=== PATIENT | female | born 1990 | race African-American/Black ===

== ENCOUNTER 2016-08-20 08:52 | Emergency (ER) | payer MEDICAID ==
[~2016-08-20] VITALS: Ht 170.2 cm; Wt 60.0 kg
[~2016-08-20 08:52] MED LIST: FERR-43 PO
[2016-08-20 09:16] VITALS: BP 147/102
== END 2016-08-20 14:10 | disposition left against medical advice (07) ==
LOC: ER 13:37
DX: Z53.21 Procedure and treatment not carried out due to patient leaving prior to being seen by health care provider (principal)

== ENCOUNTER 2016-09-09 02:16 | Emergency (ER) | payer MEDICAID ==
[~2016-09-09] VITALS: Ht 160 cm; Wt 60.0 kg
[2016-09-09] MEDS ORDERED: KETOROLAC 30MG/ML VIAL IM ONE (07:00)
[2016-09-09] MEDS ORDERED: ONDANSETRON 4MG ODT PO ONE (07:00)
[2016-09-09 07:30] VITALS: BP 140/107
[2016-09-09 07:59] LABS: BASOPHILS % 0.4 % (0.0-2.0); HEMATOCRIT. 42.4 % (36.0-48.0); HEMOGLOBIN. 14.2 g/dL (12.0-16.0); LYMPHOCYTES % 29.1 % (20.0-50.0); MEAN CORPUSCULAR HEMOGLOBIN 27.9 pg (28.0-32.0); MEAN CORPUSCULAR VOLUME 83.5 fL (81.0-99.0); MEAN PLATELET VOLUME 8.6 fl (7.4-10.4); MONOCYTES % 6.6 % (2.0-8.0); NEUTROPHILS % 63.9 % (40.0-76.0); PLATELET 225 x1000/uL (130-400); RED BLOOD CELL COUNT 5.07 mill/uL (4.2-5.4); RED CELL DISTRIBUTION WIDTH 13.2 % (11.6-14.6)
[2016-09-09 08:04] LABS: CARBON DIOXIDE 24 mEq/L (21-32); CHLORIDE 108 mEq/L (98-107); ETHANOL BLOOD < 10 mg/dL
[2016-09-09 08:06] LABS: CLARITY URINE CLOUDY (CLEAR); COLOR URINE YELLOW (YELLOW); GLUCOSE URINE NEGATIVE (NEGATIVE); KETONES URINE NEGATIVE (NEGATIVE); LEUKOCYTE ESTERASE URINE NEGATIVE (NEGATIVE); NITRITE URINE NEGATIVE (NEGATIVE); OCCULT BLOOD URINE 2+ (NEGATIVE); PROTEIN URINE NEGATIVE (NEGATIVE)
[2016-09-09 08:28] LABS: *AMPHETAMINES SCREEN URINE NEGATIVE (NEGATIVE); *BARBITURATES SCREEN URINE NEGATIVE (NEGATIVE); *BENZODIAZEPINES SCREEN URINE NEGATIVE (NEGATIVE); *COCAINE SCREEN URINE NEGATIVE (NEGATIVE); METHADONE URINE SCREEN NEGATIVE (NEGATIVE); OPIATES URINE SCREEN NEGATIVE (NEGATIVE); PHENCYCLIDINE URINE SCREEN NEGATIVE (NEGATIVE)
[2016-09-09 08:35] LABS: CANNABINOID URINE SCREEN PRESUMTIVE POSITIVE (NEGATIVE)
[2016-09-09 08:44] LABS: HCG SCREEN NEGATIVE
== END 2016-09-09 12:15 | disposition home or self-care (01) ==
LOC: ER 02:20
DX: R51 Headache (principal); F12.10 Cannabis abuse, uncomplicated; Z59.0 Homelessness
CPT/HCPCS: 36415; 80048; 80305; 81001; 84703; 85025; 96372; 99284; G0482; J1885; Q0162

== ENCOUNTER 2017-03-23 09:06 | Emergency (ER) | payer MEDICAID ==
[~2017-03-23] VITALS: Ht 165.1 cm; Wt 66.0 kg
[2017-03-23 10:40] VITALS: BP 92/63
[2017-03-23 11:12] LABS: BASOPHILS % 0.1 % (0.0-2.0); HEMATOCRIT. 44.5 % (36.0-48.0); HEMOGLOBIN. 14.6 g/dL (12.0-16.0); LYMPHOCYTES % 31.5 % (20.0-50.0); MEAN CORPUSCULAR HEMOGLOBIN 27.9 pg (28.0-32.0); MEAN CORPUSCULAR VOLUME 85.4 fL (81.0-99.0); MEAN PLATELET VOLUME 8.9 fl (7.4-10.4); MONOCYTES % 8.5 % (2.0-8.0); NEUTROPHILS % 59.9 % (40.0-76.0); PLATELET 225 x1000/uL (130-400); RED BLOOD CELL COUNT 5.21 mill/uL (4.2-5.4)
[2017-03-23 11:24] LABS: B-HCG QUANTITATIVE < 1 mIU/mL (<3); CARBON DIOXIDE 30 mEq/L (21-32); CHLORIDE 106 mEq/L (98-107)
[2017-03-23 11:25] LABS: CLARITY URINE CLOUDY (CLEAR); COLOR URINE YELLOW (YELLOW); KETONES URINE NEGATIVE (NEGATIVE); LEUKOCYTE ESTERASE URINE NEGATIVE (NEGATIVE); NITRITE URINE NEGATIVE (NEGATIVE); OCCULT BLOOD URINE 3+ (NEGATIVE); PH URINE 6.5 (4.5-8.0); PROTEIN URINE TRACE (NEGATIVE); SPECIFIC GRAVITY URINE 1.025 (1.005-1.030); UROBILINOGEN URINE 0.2 E.U./dL (0.2-1.0)
== END 2017-03-23 11:44 | disposition home or self-care (01) ==
LOC: ER 09:12
DX: N93.8 Other specified abnormal uterine and vaginal bleeding (principal); R05 Cough; F17.200 Nicotine dependence, unspecified, uncomplicated
CPT/HCPCS: 36415; 80053; 81001; 81025; 84702; 85025; 86850; 86900; 99284

== ENCOUNTER 2017-11-01 11:51 | Emergency (ER) | payer MEDICAID ==
[~2017-11-01] VITALS: Ht 162.6 cm; Wt 73.0 kg
[2017-11-01 14:00] VITALS: BP 110/64
[2017-11-01] MEDS ORDERED: LIDOCAINE HCL 1% 20ML VIAL (Pyxis) INJ MC ONE (14:15)
[2017-11-01] MEDS ORDERED: VISCOUS LIDOCAINE 2% 15 ML UDC MM STA (14:28)
[2017-11-01] MEDS ORDERED: LIDOCAINE HCL/PF 1% 10 MG/ML 5ML VIAL IJ NR (14:30)
== END 2017-11-01 15:29 | disposition home or self-care (01) ==
LOC: ER 11:51
DX: N76.4 Abscess of vulva (principal); F17.200 Nicotine dependence, unspecified, uncomplicated; Z98.890 Other specified postprocedural states
CPT/HCPCS: 10060; 81025; 99284; J3490; 99283

== ENCOUNTER → 2024-03-13 | Day surgery (SDC) | payer MEDICAID ==
[~2024-03-13] VITALS: Ht 166.4 cm; Wt 93.0 kg
[~2024-03-13] MED LIST changes: +BUPIVACAINE HCL/PF 0.5% (5MG/ML) 10ML ONE; +FENTANYL CITRATE/PF 50MCG/ML 5ML VIAL ONE; -FERR-43 PO; +GLYCOPYRROLATE 0.2 MG/ML 2ML VIAL ONE; +GLYCOPYRROLATE 0.2MG/ML VIAL 5ML IV PRN; +HYDRALAZINE 20MG/ML VIAL IV PRN; +HYDROMORPHONE HCL/PF 1MG/ML INJ IV PRN; +HYDROMORPHONE HCL/PF 1MG/ML INJ ONE; +LABETALOL 5MG/ML 4ML INJ IV PRN; +LIDOCAINE HCL 1% 10 MG/ML 10ML VIAL ONE; +NEOSTIGMINE METHYLSULFATE 1MG/ML 10 ML VIAL ONE; +ONDANSETRON HCL 4MG/2ML INJ IV PRN; +POLYMYXIN B SULFATE 500000 UNITS/VIAL ONE; +ROCURONIUM BROMIDE 10MG/ML VIAL 5ML IV ONE
[2024-03-13 09:00] LABS: UCG KIT LOT# 873622; UCG SCREEN NEGATIVE
[2024-03-13] MEDS: LACTATED RINGERS 1,000 ML IV SCH (10:41)
[2024-03-13 14:59] VITALS: BP 126/80; PULSE 78; RESP 25
[2024-03-13] MEDS: HYDROMORPHONE HCL/PF 1MG/ML INJ IV PRN (14:59)
== END | disposition home or self-care (01) ==
LOC: OR 08:00
PROVIDERS: ATTEND Specialist
DX: K43.6 Other and unspecified ventral hernia with obstruction, without gangrene (principal); G43.909 Migraine, unspecified, not intractable, without status migrainosus; Z79.899 Other long term (current) drug therapy; Z98.890 Other specified postprocedural states
CPT/HCPCS: 49594; 81025; 82962; J3010; J3490 ×5; J1171; J2710; C1781